=== PATIENT | female | born 1975 | race Caucasian/White ===

== ENCOUNTER 2022-07-01 12:58 | Emergency (ER) | payer MEDICAID, SELFPAY ==
[2022-07-01 13:09] VITALS: BP 139/54; PULSE 91; RESP 17; TEMP 36.6; O2SAT 98; BMI 28.7
--- NOTE | 2022-07-01 13:53 | ED.C_ITS ---
HPI - Psych General: Chief Complaint: Psychiatric Symptoms Stated Complaint: psych eval Time Seen by Provider: 07/01/22 13:33 Source: patient Mode of arrival: ambulatory Limitations: no limitations History of Present Illness: Patient is a 46-year-old female who presents to ED today after she was seen at the crisis stabilization center and sent to the ED for admission to [facility]. According to affidavit that was filed at the [facility] patient is having increased auditory and visual hallucinations that are telling her to give up and that she is worthless. According to affidavit patient feels that the voices are overwhelming and she is at her breaking point. Affidavit stated that patient is having difficulty hallucinations from reality and that the violent hallucinations are causing her significant emotional distress. [facility] center apparently spoke to Dr. Zamudio who accepted her to NPU. Upon my initial examination patient tells me that she is having auditory and visual hallucinations to which she has a chronic history of. She tells me the voices are telling her to give up but not to kill herself or harm herself. The voices do tell her that she is worthless however patient knows that the voices are lying and patient states she feels that she is in a good place in life. She states she is moving into a new apartment tomorrow. When asked about visual hallucinations she does tell me she always sees an old hunchback gentleman but states this is not changed in any way. Current psychiatric medications are Haldol and Mirtazapine. Patient states she does not agree with current affidavit stating that she never said she was at her breaking point and she knows the hallucinations are not reality. Patient does not wish to be admitted to NPU and feels she was lied to as she states the crisis center told her she would come to the ED for evaluation and then likely be discharged. complaint: other (hallucinations) Onset (ago): day(s) Duration: intermittent History of same: Yes Relieving factors: none Exacerbating factors: none Associated psychiatric symptoms: auditory hallucinations and visual hallucinations Associated symptoms: Reports auditory hallucinations and visual hallucinations; Deny homicidal ideation or suicidal ideation Treatments prior to arrival: other (affidavit ) Review of Systems Const: Denies: fever(s) or chills Card: Denies: chest pain, palpitations, lightheadedness or syncope Resp: Denies: dyspnea GI: Denies: abdominal pain, nausea, vomiting or diarrhea Skin/Breast: Denies: rash Neuro: Denies: headache(s) Psych: Reports: visual hallucinations and auditory hallucinations; Denies: hopelessness, paranoia, suicidal ideation or homicidal ideation [facility] ED PFSH: Medical History Parkinsons disease, secondary Psychiatric care Physical Exam Const: COMMON NORMALS: no acute distress, patient oriented x3, alert and well nourished GENERAL APPEARANCE: cooperative Resp: COMMON NORMALS: normal respiratory effort and clear to auscultation bilaterally AUSCULTATION: clear to auscultation bilaterally Cardio: COMMON NORMALS: regular rate and regular rhythm RATE: regular rate RHYTHM: regular rhythm Neuro: CHUY COMA SCALE: document GCS findings [place] coma scale eye opening: Spontaneous [place] coma scale verbal response: Orientated Ch[place] coma scale motor response: Obey commands Chuy coma scale total score: 15 COMMON NORMALS: patient oriented x3 SENSORIUM/ORIENTATION: Yes alert Psych: COMMON NORMALS: mental status grossly normal, Normal thought process present, cooperative, normal affect, speech normal, activity/motor behavior normal, denies homicidal ideation and denies suicidal ideation APPEARANCE: Yes grossly normal ACTIVITY/MOTOR BEHAVIOR: Yes appropriate eye contact and No psychomotor agitation SPEECH: Yes normal speech MOOD & AFFECT: Yes euthymic mood THOUGHT PROCESS: Normal thought process present ATTENTION/CONCENTRATION: Yes attention grossly intact and Yes concentration grossly intact MEMORY/COGNITION: Yes memory grossly intact and Yes cognition grossly intact INSIGHT: Good insight present (Psych) JUDGEMENT: Good judgement present (Psych) Course Consultations: Consultation #1: Dr. Zamudio-graciously willing to telepsych patient for evaluation Vital Signs: Vital signs: Vital Signs Temperature 97.8 F 07/01/22 13:09 Pulse Rate 91 07/01/22 13:09 Respiratory Rate 17 07/01/22 13:09 Blood Pressure 139/54 07/01/22 13:09 Pulse Oximetry 98 07/01/22 13:09 Oxygen Delivery Me thod 07/01/22 13:09 MDM - Psych Medical Decision Making Patient tells me she is not suicidal or homicidal. She states she is very easily able to differentiate her hallucinations from her reality. She does admit to having the voices tell her to give up and that she is worthless however patient states she knows these voices are lying to her and feels like she is in a good place at this time. She has plans to move into a new apartment along with her tomorrow. She is kindly requesting that we do not admit her to NPU. Based on my assessment I do not feel patient is an eminent risk to herself or others and I would not recommend admitting her against her will. I spoke to Dr. Zamudio who graciously did a telemetry psych evaluation on patient and states she is stable for discharge. Lab Data 07/01/22 13:45 07/01/22 13:45 Laboratory Results WBC 10.2 10^3/uL (4.0-10.0) H 07/01/22 13:45 RBC 4.94 10^6/uL (4.1-5.3) 07/01/22 13:45 Hgb 14.2 g/dL (11.5-15.3) 07/01/22 13:45 Hct 42.6 % (37.0-47.0) 07/01/22 13:45 MCV 86.2 fl (81-99) 07/01/22 13:45 MCH 28.7 pg (28.0-34.0) 07/01/22 13:45 MCHC 33.3 g/dL (30.0-36.0) 07/01/22 13:45 RDW 12.6 % (12.1-15.1) 07/01/22 13:45 Plt Count 325 10^3/cmm (130-400) 07/01/22 13:45 MPV 10.6 fL (7.4-10.4) H 07/01/22 13:45 Neut % (Auto) 63.6 % 07/01/22 13:45 Lymph % (Auto) 24.3 % 07/01/22 13:45 [place] % (Auto) 8.9 % 07/01/22 13:45 Eos % (Auto) 2.2 % 07/01/22 13:45 Baso % (Auto) 0.7 % 07/01/22 13:45 Neut # (Auto) 6.51 10^3/uL (1.8-7.7) 07/01/22 13:45 Lymph # (Auto) 2.5 10^3/uL (0.8-4.8) 07/01/22 13:45 [place] # (Auto) 0.9 10^3/uL (0.2-0.9) 07/01/22 13:45 Eos # (Auto) 0.2 10^3/uL (0.0-0.8) 07/01/22 13:45 Baso # (Auto) 0.1 10^3/uL (0.0-0.1) 07/01/22 13:45 Nucleated RBC % (auto) 0 % 07/01/22 13:45 Nucleated RBCs # 0.0 /100WBC 07/01/22 13:45 Sodium 134 mmol/L (136-145) L 07/01/22 13:45 Potassium 4.0 mmol/L (3.5-5.1) 07/01/22 13:45 Chloride 100 mmol/L (98-107) 07/01/22 13:45 Carbon Dioxide 22 mmol/L (22-29) 07/01/22 13:45 Anion Gap 16.0 (5-19) 07/01/22 13:45 BUN 12 mg/dL (6-20) 07/01/22 13:45 Creatinine 0.5 mg/dL (0.5-0.9) 07/01/22 13:45 GFR Calculation 132.2 mL/min (90-130) H 07/01/22 13:45 Glucose 99 mg/dL (65-115) 07/01/22 13:45 Calculated Osmolality 278 mOsm/kg (285-295) L 07/01/22 13:45 Calcium 9.6 mg/dL (8.5-10.5) 07/01/22 13:45 Total Bilirubin 0.5 mg/dL (0.15-1.2) 07/01/22 13:45 AST 26 U/L (0-32) 07/01/22 13:45 ALT 35 U/L (0-33) H 07/01/22 13:45 Alkaline Phosphatase 108 U/L (35-105) H 07/01/22 13:45 Total Protein 7.5 g/dL (6.6-8.7) 07/01/22 13:45 Albumin 4.3 g/dL (3.5-5.2) 07/01/22 13:45 Globulin 3.2 g/dL (1.3-4.6) 07/01/22 13:45 HCG, Qual Negative (Negative) 07/01/22 13:45 Salicylates < 0.3 mg/dL (3-10) L 07/01/22 13:45 Urine Opiates Screen Negative ng/mL (Negative) 07/01/22 14:00 Acetaminophen < 5.0 ug/mL (10-30) L 07/01/22 13:45 Ur Barbiturates Screen Negative ng/mL (Negative) 07/01/22 14:00 Ur Phencyclidine Scrn Negative ng/mL (Negative) 07/01/22 14:00 Ur Amphetamines Screen Negative ng/mL (Negative) 07/01/22 14:00 U Benzodiazepines Scrn Negative ng/mL (Negative) 07/01/22 14:00 Urine Cocaine Screen Negative ng/mL (Negative) 07/01/22 14:00 U Marijuana (THC) Screen Negative ng/mL (Negative) 07/01/22 14:00 Ethyl Alcohol < 10 mg/dL (0-10) 07/01/22 13:45 Discharge Plan Discharge Patient Disposition: Home Clinical Impression: Hallucinations Condition: Stable Prescriptions: No Action haloperidol 20 mg tablet See Rx Instructions .ROUTE .COMPLEX Rx Instructions: 5 mg orally in the morning / 10 mg orally in the evening mirtazapine 30 mg tablet 30 mg PO BEDTIME Discharge Orders: Discharge ED (Routine); Ordered 07/01/22 Ordered By: Maye Hand Activity Restrictions/Additional Instructions: Continue your current medications as prescribed. As we discussed you have an appointment at [facility] already scheduled-make sure you do not miss this appointment. You need to return to the emergency department or return to crisis stabilization center for any thoughts of wanting to harm yourself or harm other people or if voices become more violent or derogatory and tell you to harm/kill yourself or if you feel you are in danger in any way. Coding Level of Care Code ED Front Office Supervisor for Juliet Saleh
[2022-07-01 14:12] LABS: Basophils # 0.1 10^3/uL (0.0-0.1); Basophils % 0.7 %; Eosinophils # 0.2 10^3/uL (0.0-0.8); Eosinophils % 2.2 %; Hematocrit 42.6 % (37.0-47.0); Hemoglobin 14.2 g/dL (11.5-15.3); Lymphocytes # 2.5 10^3/uL (0.8-4.8); Lymphocytes % 24.3 %; Mean Corpuscular HGB Conc 33.3 g/dL (30.0-36.0); Mean Corpuscular Hemoglobin 28.7 pg (28.0-34.0); Mean Corpuscular Volume 86.2 fl (81-99); Mean Platelet Volume 10.6 fL (7.4-10.4); Monocytes # 0.9 10^3/uL (0.2-0.9); Monocytes % 8.9 %; Neutrophils # 6.51 10^3/uL (1.8-7.7); Neutrophils % 63.6 %; Nucleated Red Blood Cells % 0 %; Platelet Count 325 10^3/cmm (130-400); Red Blood Count 4.94 10^6/uL (4.1-5.3); Red Cell Distribution Width 12.6 % (12.1-15.1); White Blood Count 10.2 10^3/uL (4.0-10.0)
[2022-07-01 14:21] LABS: HCG, Serum Qual Negative (Negative)
[2022-07-01 14:23] LABS: Amphetamines Screen Urine Negative (Negative); Barbiturates Screen Urine Negative (Negative); Benzodiazepines Screen Urine Negative (Negative); Cocaine Screen Urine Negative (Negative); Opiate Screen Urine Negative (Negative); PCP Screen Urine Negative (Negative); THC Screen Urine Negative (Negative)
[2022-07-01 14:26] LABS: Alanine Aminotransferase 35 U/L (0-33); Albumin Level 4.3 g/dL (3.5-5.2); Alkaline Phosphatase 108 U/L (35-105); Aspartate Amino Transferase 26 U/L (0-32); Blood Urea Nitrogen 12 mg/dL (6-20); Calcium 9.6 mg/dL (8.5-10.5); Carbon Dioxide 22 mmol/L (22-29); Chloride 100 mmol/L (98-107); Creatinine Clr Calc Pharmacy 149.0435; Globulin 3.2 g/dL (1.3-4.6); Glomerular Filtration Rate 132.2 mL/min (90-130); Glucose 99 mg/dL (65-115); Osmolality Calculated 278 mOsm/kg (285-295); Sodium 134 mmol/L (136-145); Total Bilirubin 0.5 mg/dL (0.15-1.2); Total Protein 7.5 g/dL (6.6-8.7)
[2022-07-01 14:27] LABS: Acetaminophen < 5.0 ug/mL (10-30); Alcohol Level < 10 mg/dL (0-10); Salicylate < 0.3 mg/dL (3-10)
[2022-07-01 15:33] VITALS: PULSE 120; O2SAT 98
--- NOTE | 2022-07-03 15:38 | DCPLANNER ---
Addendum entered by Leeann Mcclain 07/16/22 17:53: this appointment was rescheduled Original Note: library manager called patient due to not having a primary care physician. Patient stated that she would like to be established with [facility]. library manager called [facility], spoke with Michaela, gave clinic patients information. A follow up appointment was scheduled for July at 9:[address] Vega. library manager gave patient the appointment information. library manager also gave patient the phone number to the clinic, in case she needed to reschedule or cancel the appointment.
== END 2022-07-01 15:38 | disposition home or self-care (01) ==
PROVIDERS: Emergency Provider Physician Assistant
DX: R44.0 Auditory hallucinations (principal)
CPT/HCPCS: 36415; 80053; 80306; 80307; 84703; 85025; 99285

== ENCOUNTER 2022-11-28 15:18 | Emergency (ER) | payer MEDICAID, SELFPAY ==
[2022-11-28 15:22] VITALS: BP 128/69; PULSE 111; RESP 15; TEMP 36.8; O2SAT 97; BMI 28.8
[2022-11-28 15:46] VITALS: BP 133/74; PULSE 91; RESP 18; O2SAT 95
[2022-11-28 15:59] LABS: Basophils % 0.4 %; Eosinophils # 0.1 10^3/uL (0.0-0.8); Eosinophils % 1.3 %; Hematocrit 41.3 % (37.0-47.0); Hemoglobin 13.7 g/dL (11.5-15.3); Lymphocytes % 17.8 %; Mean Corpuscular HGB Conc 33.2 g/dL (30.0-36.0); Mean Corpuscular Hemoglobin 28.7 pg (28.0-34.0); Mean Corpuscular Volume 86.6 fl (81-99); Mean Platelet Volume 10.5 fL (7.4-10.4); Monocytes # 0.9 10^3/uL (0.2-0.9); Monocytes % 8.4 %; Neutrophils # 7.96 10^3/uL (1.8-7.7); Neutrophils % 71.8 %; Nucleated Red Blood Cells % 0 %; Platelet Count 342 10^3/cmm (130-400); Red Blood Count 4.77 10^6/uL (4.1-5.3); Red Cell Distribution Width 12.5 % (12.1-15.1); White Blood Count 11.1 10^3/uL (4.0-10.0)
--- NOTE | 2022-11-28 15:59 | W.ED.GENADLT ---
HPI - General Adult General: Chief complaint: General Medical Stated complaint: night sweats Time Seen by Provider: 11/28/22 15:33 Source: patient Mode of arrival: ambulatory History of Present Illness: 46-year-old female presents emergency room complaining with single episode at night since 2 nights ago. She denies any fever sweats chills nausea vomiting or diarrhea. No recent cough or shortness of breath no dysuria urgency or frequency. States her last period was in mid September. She not had any hemoptysis or unexpected weight loss. She has no symptoms at this time. Onset (ago): day(s) (2) Relieving factors: none Exacerbating factors: none Associated symptoms: Deny chest pain, confusion, cough, diaphoresis, decreased appetite, dyspnea, fevers/chills, headache(s), malaise, nausea, rash, palpitations, seizures, short of breath, syncope, vomiting or weakness Review of Systems Const: Denies: fever(s), chills, fatigue, malaise or diaphoresis Card: Denies: chest pain, palpitations or syncope Resp: Denies: dyspnea GI: Denies: abdominal pain, nausea or vomiting : Denies: dysuria, urinary frequency or urinary urgency Musc: Denies: neck pain or back pain Skin/Breast: Denies: rash Neuro: Denies: headache(s) or confusion [facility] ED PFSH: Medical History Parkinsons disease, secondary Psychiatric care Physical Exam Const: GENERAL APPEARANCE: cooperative and comfortable ORIENTATION/CONSCIOUSNESS: Yes awake, Yes oriented to person, Yes oriented to place and Yes oriented to time HENMT: COMMON NORMALS: normocephalic, atraumatic and hearing grossly normal bilaterally HEAD & SCALP: normocephalic and atraumatic Resp: COMMON NORMALS: normal respiratory effort, No retractions, No use of accessory muscles and clear to auscultation bilaterally AUSCULTATION: clear to auscultation bilaterally Cardio: COMMON NORMALS: regular rate, regular rhythm and No murmurs present (Cardio) RATE: regular rate RHYTHM: regular rhythm GI: COMMON NORMALS: Soft to palpation and No hepatosplenomegaly present AUSCULTATION: Yes normoactive bowel sounds PALPATION: Yes Soft to palpation, No Tenderness to palpation present (GI), No Guarding due to palpation present (GI) and Yes No hepatosplenomegaly present Extremity: COMMON NORMALS: normal to inspection, capillary refill normal, no clubbing, cyanosis or edema, no calf tenderness and no pedal edema Neuro: SENSORIUM/ORIENTATION: Yes oriented to person, Yes oriented to place and Yes oriented to time Skin: COMMON NORMALS: no rashes or lesions noted GENERAL SKIN EXAM: no rashes or lesions noted Course Vital Signs: Vital signs: Vital Signs Temperature 98.3 F 11/28/22 15:22 Pulse Rate 91 11/28/22 15:46 Respiratory Rate 18 11/28/22 15:46 Blood Pressure 133/74 11/28/22 15:46 Pulse Oximetry 95 11/28/22 15:46 Oxygen Delivery Me thod Room Air 11/28/22 15:46 MDM - General Adult Medical Decision Making Patient asymptomatic this time single episode of the night sweats. Will discharge home follow-up with primary care return if has worsening problems or new or other concerning symptoms. Medical Records I reviewed the patient's medical records. Lab Data I reviewed the patient's lab results. 11/28/22 15:53 11/28/22 15:53 Laboratory Results WBC 11.1 10^3/uL (4.0-10.0) H 11/28/22 15:53 RBC 4.77 10^6/uL (4.1-5.3) 11/28/22 15:53 Hgb 13.7 g/dL (11.5-15.3) 11/28/22 15:53 Hct 41.3 % (37.0-47.0) 11/28/22 15:53 MCV 86.6 fl (81-99) 11/28/22 15:53 MCH 28.7 pg (28.0-34.0) 11/28/22 15:53 MCHC 33.2 g/dL (30.0-36.0) 11/28/22 15:53 RDW 12.5 % (12.1-15.1) 11/28/22 15:53 Plt Count 342 10^3/cmm (130-400) 11/28/22 15:53 MPV 10.5 fL (7.4-10.4) H 11/28/22 15:53 Neut % (Auto) 71.8 % 11/28/22 15:53 Lymph % (Auto) 17.8 % 11/28/22 15:53 [place] % (Auto) 8.4 % 11/28/22 15:53 Eos % (Auto) 1.3 % 11/28/22 15:53 Baso % (Auto) 0.4 % 11/28/22 15:53 Neut # (Auto) 7.96 10^3/uL (1.8-7.7) H 11/28/22 15:53 Lymph # (Auto) 2.0 10^3/uL (0.8-4.8) 11/28/22 15:53 [place] # (Auto) 0.9 10^3/uL (0.2-0.9) 11/28/22 15:53 Eos # (Auto) 0.1 10^3/uL (0.0-0.8) 11/28/22 15:53 Baso # (Auto) 0.0 10^3/uL (0.0-0.1) 11/28/22 15:53 Nucleated RBC % (auto) 0 % 11/28/22 15:53 Nucleated RBCs # 0.0 /100WBC 11/28/22 15:53 Sodium 139 mmol/L (136-145) 11/28/22 15:53 Potassium 4.1 mmol/L (3.5-5.1) 11/28/22 15:53 Chloride 102 mmol/L (98-107) 11/28/22 15:53 Carbon Dioxide 25 mmol/L (22-29) 11/28/22 15:53 Anion Gap 16.1 (5-19) 11/28/22 15:53 BUN 12 mg/dL (6-20) 11/28/22 15:53 Creatinine 0.6 mg/dL (0.5-0.9) 11/28/22 15:53 GFR Calculation 107.2 mL/min (90-130) 11/28/22 15:53 Glucose 97 mg/dL (65-115) 11/28/22 15:53 Calculated Osmolality 288 mOsm/kg (285-295) 11/28/22 15:53 Calcium 9.9 mg/dL (8.5-10.5) 11/28/22 15:53 Total Bilirubin 0.4 mg/dL (0.15-1.2) 11/28/22 15:53 AST 11 U/L (0-32) 11/28/22 15:53 ALT 14 U/L (0-33) 11/28/22 15:53 Alkaline Phosphatase 90 U/L (35-105) 11/28/22 15:53 Total Protein 7.2 g/dL (6.6-8.7) 11/28/22 15:53 Albumin 4.2 g/dL (3.5-5.2) 11/28/22 15:53 Globulin 3.0 g/dL (1.3-4.6) 11/28/22 15:53 HCG, Qual Negative (Negative) 11/28/22 15:53 Urine Color Yellow (Yellow) 11/28/22 17:15 Urine Appearance Sl hazy (CLEAR) A 11/28/22 17:15 Urine pH 5 (5-7) 11/28/22 17:15 Ur Specific [place] 1.030 (1.005-1.030) 11/28/22 17:15 Urine Protein Neg (Negative) 11/28/22 17:15 Urine Glucose (UA) Norm (Normal) 11/28/22 17:15 Urine Ketones Negative (Negative) 11/28/22 17:15 Urine Blood Neg (Negative) 11/28/22 17:15 Urine Nitrate Positive (Negative) H 11/28/22 17:15 Urine Bilirubin Neg (Negative) 11/28/22 17:15 Urine Urobilinogen Norm mg/dL (Negative) 11/28/22 17:15 Ur Leukocyte Esterase Negative (Negative) 11/28/22 17:15 Urine RBC None /hpf (0-2) 11/28/22 17:15 Urine WBC 0-4 /hpf (0-5) H 11/28/22 17:15 Ur Squamous Epith Cells 0-4 /hpf (0-5) H 11/28/22 17:15 Amorphous Sediment Not Reportable 11/28/22 17:15 Urine Bacteria 3+ /hpf (NONE) H 11/28/22 17:15 Discharge Plan Discharge Patient Disposition: Home Clinical Impression: Unexplained night sweats Condition: Stable Prescriptions: No Action mirtazapine 30 mg tablet 30 mg PO BEDTIME Qty: 30 1RF haloperidol 20 mg tablet See Rx Instructions .ROUTE .COMPLEX Qty: 90 1RF Rx Instructions: 5 mg orally in the morning / 10 mg orally in the evening bupropion HCl [Wellbutrin XL] 150 mg tablet extended release 24 hr 150 mg PO QAM Qty: 30 1RF Discharge Orders: Discharge ED (Routine); Ordered 11/28/22 Ordered By: Chandra Velazquez Discharge Diet: Usual diet Discharge Activity: Resume usual activity Patient Instructions: Opioid Safety, Pain Management Activity Restrictions/Additional Instructions: You were seen today for complaint of a single episode of night sweats. Your laboratory tests are unremarkable if you have persistent symptoms follow-up with your primary care doctor for further evaluation. No emergent condition is apparent at this time. Coding Level of Care Code ED Ruling Machine Set Up Operator for Juliet Saleh
[2022-11-28 16:23] LABS: Alanine Aminotransferase 14 U/L (0-33); Albumin Level 4.2 g/dL (3.5-5.2); Alkaline Phosphatase 90 U/L (35-105); Anion Gap 16.1 (5-19); Aspartate Amino Transferase 11 U/L (0-32); Blood Urea Nitrogen 12 mg/dL (6-20); Calcium 9.9 mg/dL (8.5-10.5); Carbon Dioxide 25 mmol/L (22-29); Chloride 102 mmol/L (98-107); Glomerular Filtration Rate 107.2 mL/min (90-130); Glucose 97 mg/dL (65-115); Osmolality Calculated 288 mOsm/kg (285-295); Potassium 4.1 mmol/L (3.5-5.1); Sodium 139 mmol/L (136-145); Total Bilirubin 0.4 mg/dL (0.15-1.2); Total Protein 7.2 g/dL (6.6-8.7)
[2022-11-28 16:24] LABS: HCG, Serum Qual Negative (Negative)
[2022-11-28 17:28] LABS: Add Urine Microscopic? YES; Bilirubin Urine Neg (Negative); Blood Urine Neg (Negative); Glucose Urine UA Norm (Normal); Ketones Urine Negative (Negative); Leukocyte Esterase Urine Negative (Negative); Nitrate Urine Positive (Negative); Protein Urine Neg (Negative); Urine Appearance SL Hazy (CLEAR); Urine Color Yellow (Yellow); Urobilinogen Urine Norm (Negative); pH Urine 5 (5-7)
[2022-11-28 17:43] LABS: Add Urine Culture? Yes; Bacteria Urine 3+ /hpf; Squamous Epithelial Cell Urine 0-4 /hpf (0-5); WBC Urine 0-4 /hpf (0-5)
== END 2022-11-28 17:25 | disposition home or self-care (01) ==
PROVIDERS: Emergency Provider Family Medicine
DX: R61 Generalized hyperhidrosis (principal); G20 Parkinson's disease
CPT/HCPCS: 36415; 80053; 81001; 84703; 85025; 87077; 87086; 87186; 99283

== ENCOUNTER → 2022-12-31 09:12 | Outpatient (BNVA) | payer MEDICAID, SELFPAY | PROVIDERS: Visit Provider Psychiatry & Neurology Psychiatry | DX: F43.12 Post-traumatic stress disorder, chronic (principal); Z79.899 Other long term (current) drug therapy | CPT/HCPCS: 80061; 83036 ==

== ENCOUNTER 2023-02-15 06:32 | Emergency (ER) | payer MEDICAID, SELFPAY ==
[2023-01-02 09:29] VITALS: BP 128/74; BMI 28.5
--- NOTE | 2023-02-15 06:41 | ED_ITS ---
HPI - Dental/Oral General: Chief complaint: Dental/Oral Stated complaint: left side tooth pain Time Seen by Provider: 02/15/23 06:40 Source: patient Mode of arrival: ambulatory History of Present Illness: 47-year-old female presents emergency room complaining of swelling and pain in the left maxillary first molar. No drainage has been going on the last couple of days she attempted to make an appoint with a drip dentist but has had some difficulty because of logistical insurance issues she is supposed to get something set up on Friday in 2 days. She denies any fevers or chills no difficulty swallowing or speaking. MD Complaint: tooth pain Teeth map: 1. Onset (ago): day(s) Duration: constant Severity: mild Associated symptoms: Reports gum swelling; Denies fever(s), odynophagia or sore throat Treatment prior to arrival: none Review of Systems Const: Denies: fever(s) or chills ENMT: Denies: odynophagia Card: Denies: chest pain Resp: Denies: dyspnea GI: Denies: abdominal pain : Denies: dysuria, urinary frequency or urinary urgency Musc: Denies: neck pain or back pain Skin/Breast: Denies: rash PFSH ED PFSH: Medical History Parkinsons disease, secondary Psychiatric care Family History Other CAD (coronary artery disease) Diabetes Hypertension Lung disease Psychiatric illness Stroke Social History Smoking and tobacco/nicotine status: current every day tobacco/nicotine user cigarettes Packs smoked per day: 0.25 Years cigarettes smoked: 15 Quit status (tobacco/nicotine): considering quitting Second hand smoke exposure: Yes Alcohol intake: never Substance/Drug Use: current Substance/Drug use frequency: Special occassions/opportunity only Adopted: No Caregiver/support person: No Lives independently: Yes Household members: significant other [facility] Marital status: Number of children: 3 Number of grandchildren: 0 Highest education level completed: 9th Grade service: No Current occupational status: disabled Pets and animals: No Leisure activites: other Leisure activities details: sleeps as much as she can Sexually active: Yes Do you think of yourself as: Straight/Heterosexual Current gender identity: Female Lelo/Jewish: Restorationism Special lelo needs: No Agree to transfusion: Yes Financial difficulty paying for basics: Somewhat Hard Female Reproductive History: Para: 3 Spontaneous abortions: Yes Physical Exam Const: GENERAL APPEARANCE: cooperative and comfortable ORIENTATION/CONSCIOUSNESS: Yes awake, Yes oriented to person, Yes oriented to place and Yes oriented to time HENMT: COMMON NORMALS: normocephalic, atraumatic and hearing grossly normal bilaterally HEAD & SCALP: normocephalic and atraumatic OTHER: Mild swelling adjacent to #14 tooth no pointing no fluctuance. Neck/C-Spine: OTHER: No submandibular lymphadenopathy or fullness Lymph: LYMPHATIC: no lymphadenopathy noted Resp: COMMON NORMALS: normal respiratory effort, No retractions, No use of accessory muscles and clear to auscultation bilaterally AUSCULTATION: clear t o auscultation bilaterally Cardio: COMMON NORMALS: regular rate, regular rhythm and No murmurs present (Cardio) RATE: regular rate RHYTHM: regular rhythm Extremity: COMMON NORMALS: normal to inspection, capillary refill normal, no clubbing, cyanosis or edema, no calf tenderness and no pedal edema Neuro: SENSORIUM/ORIENTATION: Yes oriented to person, Yes oriented to place and Yes oriented to time Skin: COMMON NORMALS: no rashes or lesions noted GENERAL SKIN EXAM: no rashes or lesions noted Course Vital Signs: Vital signs: Vital Signs Temperature 98.2 F 02/15/23 06:59 Pulse Rate 137 H 02/15/23 06:59 Respiratory Rate 18 02/15/23 06:59 Blood Pressure 156/105 02/15/23 06:59 Pulse Oximetry 98 02/15/23 06:59 Oxygen Delivery Me thod Room Air 02/15/23 06:59 MDM - Dental/Oral Medical Decision Making Start Augmentin 875 twice daily and follow-up with dentist as soon as able to provide definitive care. Diclofenac as needed for discomfort. Avoid foods and drinks that extremes of temperature Medical Records I reviewed the patient's medical records. No radiology studies performed this visit Discharge Plan Discharge Patient Disposition: Home Clinical Impression: Dental infection Condition: Stable Prescriptions: New diclofenac sodium 75 mg tablet,delayed release (DR/EC) 75 mg PO Q12H PRN (Reason: pain) Qty: 20 0RF amoxicillin-pot clavulanate 875-125 mg tablet 1 tab PO BID Qty: 20 0RF No Action bupropion HCl [Wellbutrin XL] 150 mg tablet extended release 24 hr 150 mg PO QAM Qty: 30 2RF haloperidol 5 mg tablet 5 mg PO TID Qty: 120 2RF Rx Instructions: Take 1 tab morning, one at noon and 2 tabs at night. trazodone 100 mg tablet 200 mg PO .HS PRN (Reason: insomnia) Qty: 60 2RF prazosin 5 mg capsule 5 mg PO .HS Qty: 30 2RF Discharge Orders: Discharge ED (Routine); Ordered 02/15/23 Ordered By: Chandra Velazquez Discharge Diet: Usual diet Discharge Activity: Increase activity as tolerated Patient Instructions: Dental Caries (Cavities), Opioid Safety, Pain Management, Dental Abscess Coding Level of Care Code ED Director Of Services for Juliet Saleh
[2023-02-15 06:59] VITALS: BP 156/105; PULSE 137; RESP 18; TEMP 36.8; O2SAT 98
== END 2023-02-15 07:02 | disposition home or self-care (01) ==
PROVIDERS: Emergency Provider Family Medicine
DX: K04.7 Periapical abscess without sinus (principal); G20.A1 Parkinson's disease without dyskinesia, without mention of fluctuations; F17.210 Nicotine dependence, cigarettes, uncomplicated
CPT/HCPCS: 99283

== ENCOUNTER 2023-04-30 15:57 | Emergency (ER) | payer MEDICAID, SELFPAY ==
[2023-01-02 09:29] VITALS: BP 128/74; BMI 28.5
[2023-04-30 15:59] VITALS: BMI 29.8
--- NOTE | 2023-04-30 16:00 | XRR_ITS ---
PROCEDURE INFORMATION: Exam: XR Right Ankle Exam date and time: 04/30/2023 4:19 PM Age: 47 years old Clinical indication: Injury or trauma; Fall; Sprain or strain; Ankle; Right TECHNIQUE: Imaging protocol: Radiologic exam of the right ankle. Views: 3 or more views. COMPARISON: No relevant prior studies available. FINDINGS: Bones/joints: No fracture or dislocation. Soft tissues: No acute findings. XR/XR ankle RT min 3V* [id number] IMPRESSION: No acute findings.
[2023-04-30 16:06] VITALS: BP 122/75; PULSE 82; RESP 15; TEMP 37.1; O2SAT 98
--- NOTE | 2023-04-30 16:48 | ED_ITS ---
HPI - Extremity Problem General: Chief complaint: Extremity Injury, Lower Stated complaint: right ankel pain Time Seen by Provider: 04/30/23 16:43 Source: patient and EMS Mode of arrival: EMS Limitations: no limitations History of Present Illness: 39-year-old female states she is walking on the road last night and stepped in a hole and twisted her right ankle. States she has had right ankle pain since then along with some slight swelling rates her pain a 6 out of 10 states its painful to bear weight. Associated symptoms: Deny chest pain, fever(s) or rash Review of Systems Const: Denies: fever(s), chills, body aches or change in appetite ENMT: Denies: throat pain or dental pain Card: Denies: chest pain Resp: Denies: dyspnea GI: Denies: abdominal pain, nausea, vomiting or diarrhea Musc: Reports: extremity pain; Denies: neck pain or back pain Skin/Breast: Denies: rash Neuro: Denies: headache(s) PFSH ED PFSH: Medical History Parkinsons disease, secondary Psychiatric care Family History Other CAD (coronary artery disease) Diabetes Hypertension Lung disease Psychiatric illness Stroke Social History Smoking and tobacco/nicotine status: current every day tobacco/nicotine user cigarettes Packs smoked per day: 0.25 Years cigarettes smoked: 15 Quit status (tobacco/nicotine): considering quitting Second hand smoke exposure: Yes Alcohol intake: never Substance/Drug Use: current Substance/Drug use frequency: Special occassions/opportunity only Adopted: No Caregiver/support person: No Lives independently: Yes Household members: significant other [facility] Marital status: Number of children: 3 Number of grandchildren: 0 Highest education level completed: 9th Grade service: No Current occupational status: disabled Pets and animals: No Leisure activites: other Leisure activities details: sleeps as much as she can Sexually active: Yes Do you think of yourself as: Straight/Heterosexual Current gender identity: Female Lelo/Pentecostal: Yazdanism Special lelo needs: No Agree to transfusion: Yes Female Reproductive History: Para: 3 Spontaneous abortions: Yes Physical Exam Const: COMMON NORMALS: no acute distress, patient oriented x3 and healthy appearing HENMT: COMMON NORMALS: normocephalic and atraumatic HEAD & SCALP: normocephalic and atraumatic Neck/C-Spine: COMMON NORMALS: full ROM and supple Chest: COMMONS NORMALS: normal inspection of the chest Resp: COMMON NORMALS: normal respiratory effort Extremity: COMMON NORMALS: full ROM NARRATIVE EXTREMITY EXAM: Slight tenderness over right lateral ankle slight swelling no obvious deformities Neuro: COMMON NORMALS: patient oriented x3, moves all extremities and no focal motor deficits Psych: COMMON NORMALS: mental status grossly normal, Normal thought process present and cooperative THOUGHT PROCESS: Normal thought process present Skin: COMMON NORMALS: no rashes or lesions noted and no wounds GENERAL SKIN EXAM: no rashes or lesions noted Course Vital Signs: Vital signs: Vital Signs Temperature 98.8 F 04/30/23 16:06 Pulse Rate 82 04/30/23 16:06 Respiratory Rate 15 04/30/23 16:06 Blood Pressure 122/75 04/30/23 16:06 Pulse Oximetry 98 04/30/23 16:06 Oxygen Delivery Me thod Room Air 04/30/23 16:06 MDM - Extremity (Nontraumatic) Medical Decision Making Patient presents here with right ankle sprain patient placed in Gaudencio wrap give crutches weight-bear as tolerated we will get follow-up with podiatry return if worsening. Medical Records I reviewed the patient's medical records. XR interpretation done by ED provider, pending radiology final review ED provider radiology interpretation(s): X-ray right ankle no fracture Discharge Plan Discharge Patient Disposition: Home Clinical Impression: Ankle sprain and strain Condition: Stable Prescriptions: New Naprosyn 500 mg tablet 500 mg PO BID PRN (Reason: pain) Qty: 20 0RF No Action haloperidol 5 mg tablet 5 mg PO TID Qty: 120 2RF Rx Instructions: Take 1 tab morning, one at noon and 2 tabs at night. diclofenac sodium 75 mg tablet,delayed release (DR/EC) 75 mg PO Q12H PRN (Reason: pain) Qty: 20 0RF amoxicillin-pot clavulanate 875-125 mg tablet 1 tab PO BID Qty: 20 0RF Discharge Orders: Discharge ED (Routine); Ordered 04/30/23 Ordered By: Ghada Guzman Referrals: Bala Uribe DPM [Physician] - 1-3 days Discharge Diet: Advance as tolerated Discharge Activity: Resume usual activity Patient Instructions: Ankle Sprain (ED) Coding Level of Care Code ED Professor Of Communication And Writing for Juliet Saleh
[2023-04-30] MEDS: naproxen 500 mg Tablet PO (17:05)
--- NOTE | 2023-05-01 10:37 | DCPLANNER ---
Message was sent to podiatry on 05/01/[address] [place] [address] to contact patient.
== END 2023-04-30 17:08 | disposition home or self-care (01) ==
PROVIDERS: Emergency Provider Emergency Medicine
DX: S93.401A Sprain of unspecified ligament of right ankle, initial encounter (principal); S96.911A Strain of unspecified muscle and tendon at ankle and foot level, right foot, initial encounter; G20.A1 Parkinson's disease without dyskinesia, without mention of fluctuations; F17.210 Nicotine dependence, cigarettes, uncomplicated; X50.1XXA Overexertion from prolonged static or awkward postures, initial encounter
CPT/HCPCS: 73610; 99283; E0114

== ENCOUNTER 2023-10-17 11:25 | Emergency (ER) | payer MEDICAID, SELFPAY ==
[2023-01-02 09:29] VITALS: BP 128/74; BMI 28.5
[2023-10-17 11:47] VITALS: BP 120/69; PULSE 73; RESP 14; TEMP 36.4; O2SAT 98
--- NOTE | 2023-10-17 11:54 | W.ED.GENADLT ---
HPI - General Adult General: Chief complaint: General Medical Stated complaint: std treatment Time Seen by Provider: 10/17/23 11:45 History of Present Illness: 47-year-old female who presents to the emergency room requesting treatment for sexually transmitted disease. She feels like she has gonorrhea and chlamydia. She has had this before and the symptoms are similar. She says she feels like my vagina is going to fall out and she is having yellow discharge. No abdominal pain. No nausea or vomiting. She says she came to the emergency room because she did not know where the health department was. Review of Systems Narrative: T constitutional symptoms: Negative except as documented in HPI. Skin symptoms: Negative except as documented in HPI. Eye symptoms: Negative except as documented in HPI. ENMT symptoms: Negative except as documented in HPI. Respiratory symptoms: Negative except as documented in HPI. Cardiovascular symptoms: Negative except as documented in HPI. Gastrointestinal symptoms: Negative except as documented in HPI. Genitourinary symptoms: Negative except as documented in HPI. Musculoskeletal symptoms: Negative except as documented in HPI. Neurologic symptoms: Negative except as documented in HPI. Psychiatric symptoms: Negative except as documented in HPI. Endocrine symptoms: Negative except as documented in HPI. PFS ED PFSH: Medical History Parkinsons disease, secondary Psychiatric care Family History Other CAD (coronary artery disease) Diabetes Hypertension Lung disease Psychiatric illness Stroke Social History Smoking and tobacco/nicotine status: current every day tobacco/nicotine user cigarettes Packs smoked per day: 0.25 Years cigarettes smoked: 15 Quit status (tobacco/nicotine): considering quitting Second hand smoke exposure: Yes Alcohol intake: never Substance/Drug Use: current Substance/Drug use frequency: Special occassions/opportunity only Adopted: No Caregiver/support person: No Lives independently: Yes Household members: significant other Housing: Other Details: [facility] room Marital status: Number of children: 3 Number of grandchildren: 0 Highest education level completed: 9th Grade service: No Current occupational status: disabled Pets and animals: No Leisure activites: other Leisure activities details: sleeps as much as she can Sexually active: Yes Do you think of yourself as: Straight/Heterosexual Current gender identity: Female Lelo/Advent: Tenriism Special lelo needs: No Agree to transfusion: Yes Female Reproductive History: Para: 3 Spontaneous abortions: Yes Physical Exam Narrative: EXAM NARRATIVE: General: Alert, no acute distress. Skin: warm and dry Head: Normocephalic Neck: Trachea midline Eye: Extraocular movements are intact. Ears, nose, mouth and throat: Oral mucosa moist Respiratory: Respirations are non-labored Musculoskeletal: Normal ROM Neurological: Alert and oriented, No focal neurological deficit observed. Psychiatric: Cooperative, appropriate mood & affect. Course Vital Signs: Vital signs: Vital Signs Temperature 97.6 F 10/17/23 11:47 Pulse Rate 73 10/17/23 11:47 Respiratory Rate 14 10/17/23 11:47 Blood Pressure 120/69 10/17/23 11:47 Pulse Oximetry 98 10/17/23 11:47 Oxygen Delivery Me thod Room Air 10/17/23 11:47 MDM - General Adult Medical Decision Making Assessment and plan: Sexually-transmitted infection ? 1000 mg p.o. azithromycin and 500 mg IM Rocephin for empiric treatment. ? I will place her on 7 days of doxycycline as well. ? I recommended to the patient that she go to the health department for official examination and testing. - Discharged home - Discussed plan with patient. Answered any questions. - Evaluation and treatment of this problem were appropriate in the emergency setting. No radiology studies performed this visit Discharge Plan Discharge Patient Disposition: Home Clinical Impression: STD (female) Condition: Stable Prescriptions: New doxycycline monohydrate 100 mg capsule 100 mg PO BID 7 Days Qty: 14 0RF No Action haloperidol 5 mg tablet 5 mg PO TID Qty: 120 2RF Rx Instructions: Take 1 tab morning, one at noon and 2 tabs at night. quetiapine [Seroquel] 100 mg tablet 100 mg PO .HS Qty: 30 2RF Discharge Orders: Discharge ED (Routine); Ordered 10/17/23 Ordered By: Sofia Jim Discharge Diet: Advance as tolerated Discharge Activity: Limit activity as instructed Patient Instructions: Sexually Transmitted Diseases (ED), Safe Sex Practices for Adolescents (ED) Activity Restrictions/Additional Instructions: No sexual activity until you have completed your course of antibiotics. I would suggest to go to the health department and have official testing for sexually transmitted diseases. Thank you for choosing [facility] for your healthcare needs today. Please realize this is an emergency room and that we are providing you with a medical screening exam and this may not be complete and all inclusive of all the testing and or work up that you may need to determine your ailment or severity of your illness. You have been screened and evaluated and felt safe for discharge. Health conditions do change or evolve sometimes and as such it is important that you follow up with your Primary Doctor to be re checked, 3-5 days is a general good time frame for follow up. You are always welcome to return to the ED for re assessment if your symptoms are worsening or you have new concerns Coding Level of Care Code ED Credit Analyst for Juliet Saleh
[2023-10-17] MEDS: azithromycin 250 mg Tablet 1000 MG PO (12:09)
[2023-10-17] MEDS: cefTRIAXone 500 MG in water for injection-sterile 1 ML IM (12:10)
[2023-10-17 12:14] VITALS: BP 118/72; PULSE 71; RESP 16; TEMP 36.4; O2SAT 99
== END 2023-10-17 12:15 | disposition home or self-care (01) ==
PROVIDERS: Emergency Provider Emergency Medicine
DX: A64 Unspecified sexually transmitted disease (principal); G20.A1 Parkinson's disease without dyskinesia, without mention of fluctuations; F17.210 Nicotine dependence, cigarettes, uncomplicated
CPT/HCPCS: 96372; 99284; J0696; Q0144